=== PATIENT | female | born 1940 | race Caucasian/White ===

== ENCOUNTER → 2019-01-02 | Outpatient (CLI) | payer MEDICARE, OTHER ==
[~2019-01-02] MED LIST: ADVIL100 M2 ORAL; ALENDRONATE SOD70 MG ORAL; BISACODYL5 MG ORAL; CRESTOR10 M1 ORAL; DICYCLOMINE HCL10 MG PO; ENALAPRIL MALEA20 MG ORAL; OYSTER SHELL C500 MG PO; PROPRANOLOL HCL20 MG ORAL; RANITIDINE HCL150 M2 PO; SUMATRIPTAN SU100 MG PO
[2019-01-02 13:50] VITALS: BP 163/92
--- NOTE | 2019-01-02 20:01 | Consultation ---
DATE OF CONSULTATION: 01/02/2019 CONSULTING PHYSICIAN: Andre Gardiner M.D. CHIEF COMPLAINT: Rectal bleeding, stool OB positive. HISTORY OF PRESENT ILLNESS: This is a very pleasant 78-year-old female, with past medical history of esophagitis, chronic GERD, history of gallstones presented to us with complaint of stool OB positive from the primary care physician. PAST MEDICAL HISTORY: 1. Hypertension. 2. GERD. 3. History of migraine headaches. 4. Esophagitis. 5. Gallstones. PAST SURGICAL HISTORY: 1. Bilateral total hip replacement. 2. The patient has also had a left TKR. MEDICATIONS: Please see medication reconciliation list. REVIEW OF SYSTEMS: A 10-point review of systems was performed and pertinent positives in HPI. FAMILY HISTORY: No family history of GI malignancies. SOCIAL HISTORY: The patient denies any tobacco, alcohol, or drug abuse. . Lives with . ALLERGIES: No known drug allergies. PHYSICAL EXAMINATION: VITAL SIGNS: Temperature 97.7, blood pressure is 160/92, pulse is 69, respirations 20, weight is 175. HEENT: Normocephalic and atraumatic. Scleral icterus. NECK: Supple. No obvious evidence of lymphadenopathy. CARDIOVASCULAR: Regular rate and rhythm. Plus S1 and S2. No obvious murmur. LUNGS: Clear to auscultation bilaterally. ABDOMEN: Positive bowel sounds. Soft, nontender. No rebound. No guarding. No peritoneal sign. EXTREMITIES: No cyanosis, no clubbing, no edema. ASSESSMENT AND PLAN: This is an 78-year-old female with past medical history of esophagitis, gastritis was referred to us for evaluation for stool OB positive x2. The patient most probably will benefit from endoscopy and colonoscopy given she has not had any of those for last 5 years. The risks and benefits of the procedure was explained to her in front of her and she agreed to it. We will plan to schedule for tomorrow. The patient to come in for endoscopy and colonoscopy. She was given the prep today and she will come tomorrow for both procedures. I want to thank Dr. Arango for this kind referral. Andre Gardiner M.D. DR: CARMEN JOB#: [id number] CC: Vimal Arango M.D.; Fax#: [phone]
== END | disposition home or self-care (01) ==
LOC: PAN 13:24
DX: K62.5 Hemorrhage of anus and rectum (principal); Z87.19 Personal history of other diseases of the digestive system; I10 Essential (primary) hypertension; K21.9 Gastro-esophageal reflux disease without esophagitis; G43.909 Migraine, unspecified, not intractable, without status migrainosus
CPT/HCPCS: 99202

== ENCOUNTER 2019-01-03 08:02 | Day surgery (SDC) | payer MEDICARE, OTHER ==
[~2019-01-03] VITALS: Ht 165.1 cm; Wt 77.1 kg
[2019-01-03] VITALS (9 sets, daily range): BP systolic 127–164; BP diastolic 71–88
[2019-01-03] MEDS ORDERED: Midazolam 2mg/2ml Inj ONE (08:03)
[2019-01-03] MEDS ORDERED: Propofol 200mg/20ml IV ONE (10:00)
[2019-01-03] MEDS ORDERED: Lidocaine 1% MPF 10mg/ml 5ml ONE (10:00)
--- NOTE | 2019-01-03 10:03 | Pre-Procedure Note/Attestation ---
Pre-Procedure Note/Attestation Complete Prior to Procedure Planned Procedure: not applicable Procedure Narrative: esophagogastroduodenoscopy and colonoscopy Indications for Procedure Pre-Operative Diagnosis: gib Attestation I attest that I discussed the nature of the procedure; its benefits; risks and complications; and alternatives (and the risks and benefits of such alternatives ), prior to the procedure, with the patient (or the patient's legal community engagement representative). I attest that, if there was a reasonable possibility of needing a blood transfusion, the patient (or the patient's legal community engagement representative) was given the [facility] standardized written summary, pursuant to the Zechariah Courtney Blood Safety Act ([place] Health and Safety Code # 1645, as amended). I attest that I re-evaluated the patient just prior to the surgery and that there has been no change in the patient's H&P, except as documented below: Andre Gardiner MD Jan 03, 2019 10:03
--- NOTE | 2019-01-03 10:04 | Short Stay Surgery H&P ---
History of Present Illness History of Present Illness Chief Complaint anemia, stool ob positive HPI Alvin Willson is a 78 year old female who was admitted on for Gi Bleed Patient History Allergies: Coded Allergies: ASPIRIN (Verified Allergy, Severe, 01/03/19) STOMACH BLEEDING FISH DERIVED (Verified Allergy, Intermediate, 01/03/19) HEADACHE,NAUSEA PAST MEDICAL HISTORY: (1) HTN (hypertension) (2) Gastritis Medication History Scheduled Bisacodyl* (Dulcolax*), 5 MG ORAL PRN, (Reported) Calcium Carbonate (Oyster Shell Calcium), 500 MG PO DAILY, (Reported) Dicyclomine Hcl* (Dicyclomine Hcl*), 10 MG PO BID, (Reported) Enalapril Maleate* (Enalapril Maleate*), 20 MG ORAL EVERY 12 HOURS, (Reported) Ibuprofen (Advil), 600 MG ORAL Q6H, (Reported) Propranolol Hcl* (Inderal*), 20 MG ORAL THREE TIMES A DAY, (Reported) Ranitidine HCl (Ranitidine HCl), 150 MG PO BEDTIME, (Reported) Rosuvastatin Calcium (Crestor), 5 MG ORAL DAILY, (Reported) Sumatriptan Succinate (Sumatriptan Succinate), 100 MG PO PRN, (Reported) Review of Systems Cardiovascular: Reports: no symptoms Skeletal: Reports: no symptoms Gastrointestinal: Reports: other Genitourinary: Reports: no symptoms Neurologic: Reports: no symptoms Endocrine: Reports: no symptoms Hematologic: Reports: anemia Physical Exam Vital Signs Last Vital Signs Date Time Temp Pulse Resp B/P (MAP) Pulse Ox O2 Delivery O2 Flow Rate FiO2 01/03/19 09:18 97.7 67 20 155/88 96 Room Air Skin: normal HENT: normal Heart: normal Lungs: normal Abdomen: normal Extremities: normal Plan Plan of Care esophagogastroduodenoscopy and colonoscopy Attestation Are the patient's medical conditions optimized for surgery? Attestation Response: yes Andre Gardiner MD Jan 03, 2019 10:04
--- NOTE | 2019-01-03 10:23 | Anethesia Preoperative Eval ---
Anesthesia Pre-op PMH/ROS General Date of Evaluation: Jan 03, 2019 Time of Evaluation: 10:00 Anesthesiologist: Vera ASA Score: ASA 2 Mallampati Score Class I : Soft palate, uvula, fauces, pillars visible Class II: Soft palate, uvula, fauces visible Class III: Soft palate, base of uvula visible Class IV: Only hard plate visible Mallampati Classification: Class III Surgeon: Zuleyka Diagnosis: GI bleed Surgical Procedure: EGD/Colonoscopy Anesthesia History: none Social History: alcohol use Family History: no anesthesia problems Allergies: Coded Allergies: ASPIRIN (Verified Allergy, Severe, 01/03/19) STOMACH BLEEDING FISH DERIVED (Verified Allergy, Intermediate, 01/03/19) HEADACHE,NAUSEA Medications: see eMAR Patient NPO?: Yes NPO Date: Jan 03, 2019 NPO Time: 06:30 Past Medical History Cardiovascular: Reports: HTN, arrhythmia - sinus arrhythmia , other - increase cholosterol Pulmonary: Denies: asthma, COPD, KEELY, other Gastrointestinal/Genitourinary: Reports: GERD, other - gi bleed Neurologic/Psychiatric: Reports: depression/anxiety Endocrine: Denies: DM, hypothyroidism, steroids, other HEENT: Reports: cataract (L), cataract (R) Hematology/Immune: Reports: anemia Musculoskeletal/Integumentary: Reports: OA Other: obesity PSxH Narrative: knee surgery, hip surgery, bilateral cataracts, c section , colonoscopy, EGD Anesthesia Pre-op Phys. Exam Physician Exam Last Vital Signs Date Time Temp Pulse Resp B/P (MAP) Pulse Ox O2 Delivery O2 Flow Rate FiO2 01/03/19 09:18 97.7 67 20 155/88 96 Room Air Constitutional: NAD Neurologic: CN 2-12 intact Cardiovascular: RRR Respiratory: CTA Gastrointestinal: S/NT/ND Airway Exam Mallampati Score: Class III MO: full ROM: full Teeth: intact Dentures: no upper, no lower Anesthesia Pre-op A/P Studies Pre-op Studies: EKG - NSR with sinus arrhythimas Risk Assessment & Plan Assessment: A&Ox3 Plan: MAC Status Change Before Surgery: No Pre-Antibiotics Given Within 1 Hr of Incision: No - none per surgeon Zoraida Gamez CRNA Jan 03, 2019 10:23
--- NOTE | 2019-01-03 10:24 | Immediate Post-Op Evaluation ---
Immediate Post-Op Evalulation Immediate Post-Op Evalulation Procedure: EGD/Colonoscopy Date of Evaluation: Jan 03, 2019 Time of Evaluation: 10:38 IV Fluids: NSS 350 ml Blood Products: 0 Estimated Blood Loss: 0 Urinary Output: 0 Blood Pressure Systolic: 132 Blood Pressure Diastolic: 71 Pulse Rate: 72 Respiratory Rate: 15 O2 Sat by Pulse Oximetry: 100 Temperature (Fahrenheit): 97.1 Pain Score (1-10): 0 Nausea: No Vomiting: No Complications none noted Patient Status: awake, reacts, patent Hydration Status: adequate Given Within 1 Hr of Incision: Zoraida Dacosta CRNA Jan 03, 2019 10:24
--- NOTE | 2019-01-03 10:25 | 48 Hour Post Anesthesia Eval ---
Post Anesthesia Evaluation Procedure: EGD/Colonoscopy Date of Evaluation: Jan 03, 2019 Time of Evaluation: 11:10 Blood Pressure Systolic: 140 0: 76 Pulse Rate: 65 Respiratory Rate: 17 Temperature (Fahrenheit): 97.1 O2 Sat by Pulse Oximetry: 97 Airway: patent Nausea: No Vomiting: No Pain Intensity: 0 Hydration Status: adequate Mental Status/LOC: patient returned to baseline Follow-up care needed: patient intructions given Zoraida Gamez CRNA Jan 03, 2019 10:25
--- NOTE | 2019-01-03 10:32 | Endoscopy Procedure Note ---
Endoscopy Procedure Note General Indication for Procedure: GIB Procedures Performed: EGD, colonoscopy Operative Findings/Diagnosis: gastritis, 2 colon polyps Specimen: yes Pt Tolerated Procedure Well: Yes Estimated Blood Loss: none Anesthesia Anesthesiologist: karli Anesthesia: MAC Inserted Devices Implant(s) used?: No Quality Quality of Bowel Preparation: Good Did scope reach the cecum?: Yes Was there any complications?: No GI Core Measures 50 yrs or older w/o bx or poly: No 10yrs. F/U not recommended: Yes If not recommended, why?: Above average risk 10 yrs. F/U needed: Yes 18 years or older w/prev. colo: Yes <3yrs. since last colonoscopy: No Andre Gardiner MD Jan 03, 2019 10:32
[2019-01-03] MEDS ORDERED: fentaNYL 100 mcg/2 mL IV PRN (11:45)
--- NOTE | 2019-01-03 13:07 | Cardiology Report ---
APPROVED REPORT EKG Measurement Heart [id number] FL [id number] [id number] Normal sinus rhythm with sinus arrhythmia Abnormal ECG
--- NOTE | 2019-01-03 17:46 | Procedure Note ---
DATE OF PROCEDURE: 01/03/2019 SURGEON: Andre Gardiner M.D. ANESTHESIOLOGIST: Ms. Vera BECERRIL. REFERRING PHYSICIAN: Dr. Arango. PROCEDURE: Upper endoscopy with biopsy and colonoscopy with biopsy. ANESTHESIA: Per Ms. Vera BECERRIL. INSTRUMENT: Olympus adult flexible upper endoscope and colonoscope. INDICATIONS: Stool OB positive. The procedure, risks, benefits, and possible consequences, including hemorrhage, aspiration, perforation and infection, and alternative treatments, were explained to the patient/legal guardian by Dr. Andre Gardiner and the patient/legal guardian understood and accepted these risks. DESCRIPTION OF PROCEDURE: After informed consent was obtained and the patient was adequately sedated, Olympus upper endoscope was advanced from the mouth into the second portion of the duodenum and retroflexion was performed in the stomach. The patient had evidence of diffuse gastritis. There was some streaky erythema in the body of the stomach. The patient also had evidence of a small hiatal hernia. No evidence of any esophagitis. Duodenum was normal. Mucosa grossly looked within normal limit. At this time, the upper endoscope was retrieved. The patient was turned over for colonoscopy. First, rectal exam was performed which was positive for internal hemorrhoids. Then, the scope was advanced from the rectum into the cecum documented by appendix orifice, ileocecal valve, and right upper quadrant palpation. Quality of prep was good. The patient had evidence of 2 diminutive polyps in the transverse colon, both removed with the cold biopsy forceps technique. The rest of the examination grossly looked within normal limit. Retroflexion of rectum showed evidence of internal hemorrhoids. SUMMARY OF FINDINGS: 1. Gastritis, status post biopsy. 2. Small hiatal hernia. 3. Streaky erythema of the stomach. 4. Two colonic polyps removed, see above for details. RECOMMENDATIONS: Follow up biopsy results and treat accordingly. Meanwhile, we will place the patient on PPI daily given finding on the stomach. The patient is to return to clinic in 1 week for followup. I want to thank Dr. Arango for this kind referral. Andre Gardiner M.D. DR: Brady JOB#: [id number] CC: Dr. Arango
== END 2019-01-03 11:50 | disposition home or self-care (01) ==
LOC: GAS 08:02
DX: K44.9 Diaphragmatic hernia without obstruction or gangrene (principal); K29.70 Gastritis, unspecified, without bleeding; K63.5 Polyp of colon; I49.9 Cardiac arrhythmia, unspecified; I10 Essential (primary) hypertension; K21.9 Gastro-esophageal reflux disease without esophagitis; F32.9 Major depressive disorder, single episode, unspecified; F41.9 Anxiety disorder, unspecified; M19.90 Unspecified osteoarthritis, unspecified site
CPT/HCPCS: 43239; 45380; 93005; J2250; J2704; 94003; 94150

== ENCOUNTER 2019-01-21 10:38 | Outpatient (CLI) | payer MEDICARE, OTHER ==
[2019-01-21 11:00] VITALS: BP 132/82
--- NOTE | 2019-01-21 14:21 | General Progress Note ---
Assessment/Plan Problem List: (1) Colon polyps ICD Codes: K63.5 - Polyp of colon SNOMED: 92740336 (2) HTN (hypertension) ICD Codes: I10 - Essential (primary) hypertension SNOMED: 88535089 (3) Gastritis ICD Codes: K29.70 - Gastritis, unspecified, without bleeding SNOMED: 8780186 Assessment/Plan repeat colon in 5 years [facility] Subjective ROS Limited/Unobtainable: Yes Allergies: Coded Allergies: ASPIRIN (Verified Allergy, Severe, 01/03/19) STOMACH BLEEDING FISH DERIVED (Verified Allergy, Intermediate, 01/03/19) HEADACHE,NAUSEA Objective General Appearance: alert EENT: normal ENT inspection Neck: supple Cardiovascular: normal rate Respiratory/Chest: decreased breath sounds Abdomen: normal bowel sounds, non tender, soft Extremities: non-tender Andre Gardiner MD Jan 21, 2019 14:21
== END 2019-01-21 12:38 | disposition home or self-care (01) ==
LOC: PAN 10:38
DX: K63.5 Polyp of colon (principal); I10 Essential (primary) hypertension; K29.70 Gastritis, unspecified, without bleeding; Z88.6 Allergy status to analgesic agent; Z91.013 Allergy to seafood

== ENCOUNTER 2019-01-29 09:59 | Outpatient (CLI) | payer MEDICARE, OTHER ==
--- NOTE | 2019-01-29 11:40 | Diagnostic Imaging Report ---
Indication: Abdominal pain Technique: Henson-scale and duplex images of the upper abdomen were obtained Comparison: none Findings: Gallbladder is unremarkable, without stones, wall thickening, nor pericholecystic fluid. Sonographic Howard's sign is negative. Common bile duct measures one mm in diameter. No intrahepatic biliary ductal dilatation. Liver demonstrates normal echogenicity, no focal abnormality. Portal vein and hepatic veins are patent. Pancreas is unremarkable. Spleen is unremarkable. Left kidney measures than 0.2 cm in length. Right kidney measures 9.9 cm length. Both kidneys demonstrate normal echogenicity. There is no hydronephrosis. Right kidney demonstrates a 9 mm nonshadowing echogenic focus in the right upper pole adjacent to the renal sinus. . Abdominal aorta is partially obscured by bowel gas, visualized portions are non-aneurysmal . Impression: Negative for gallstones or dilated bile ducts or other significant or acute abnormality Incidental finding 9 mm nonshadowing echogenic focus in the right kidney, probably an angiomyolipoma
== END 2019-01-29 11:59 | disposition home or self-care (01) ==
LOC: RAD 09:59
DX: R10.9 Unspecified abdominal pain (principal)
CPT/HCPCS: 76700